=== PATIENT | female | born 1985 | race Caucasian/White ===

== ENCOUNTER 2017-02-02 12:12 | Emergency (ER) | payer BC ==
[2017-02-02 12:46] VITALS: BP 123/86
--- NOTE | 2017-02-02 13:07 | UC ---
Respiratory Complaint HPI - HPI Summary HPI Summary: patient has had some wheezing and SOb on exertion. - History of Current Complaint Chief Complaint: UCGeneralIllness Stated Complaint: COUGH Time Seen by Provider: 02/02/17 12:58 Hx Obtained From: Patient Hx Last Menstrual Period: 01/19/17 ?: No Onset/Duration: Sudden Onset, Lasting Weeks Timing: Constant Severity Initially: Mild Severity Currently: Moderate Character: Cough: Nonproductive Aggravating Factors: Exertion, Deep Breaths, Recumbent Position Alleviating Factors: Nothing Associated Signs And Symptoms: Positive: Wheezing, URI - Allergies/Home Medications Allergies/Adverse Reactions: Allergies Allergy/AdvReac Type Severity Reaction Status Date / Time Adhesive Tape Allergy Intermediate Blisters Verified 02/02/17 12:40 Erythromycin Allergy Hives Verified 02/02/17 12:40 BEE STINGS Allergy Severe Anaphylatic Uncoded 02/02/17 12:40 Shock Home Medications: Home Medications Dextromethorphan-Guaifenesin [Mucinex Dm Maximum Streng 60-1200 mg] 1 tab PO Q6H PRN 02/02/17 [History Confirmed 02/02/17] PMH/Surg Hx/FS Hx/Imm Hx Previously Healthy: Yes - Surgical History Surgical History: Yes Surgery Procedure, Year, and Place: APPY, CHOLECYSTECTOMY, TONSILLECTOMY, FX LEG , Gastric Bypass 08/2014, TUBAL LIGATION 2010, - Family History Known Family History: Positive: Hypertension - Social History Alcohol Use: Rare Substance Use Type: None Smoking Status (MU): Never Smoked Tobacco Review of Systems Constitutional: Negative Skin: Negative Eyes: Negative ENT: Negative Respiratory: Shortness Of Breath, Cough Cardiovascular: Negative Gastrointestinal: Negative Genitourinary: Negative Motor: Negative Neurovascular: Negative Musculoskeletal: Negative Neurological: Negative Psychological: Negative All Other Systems Reviewed And Are Negative: Yes Physical Exam Triage Information Reviewed: Yes Appearance: Well-Nourished, Ill-Appearing, Pain Distress Vital Signs: Initial Vital Signs Temp 98.3 F 02/02/17 12:42 Pulse 75 02/02/17 12:42 Resp 16 02/02/17 12:42 BP 123/86 02/02/17 12:42 Pulse Ox 99 02/02/17 12:42 Vital Signs Reviewed: Yes Eye Exam: Normal ENT: Positive: Hearing grossly normal, Pharynx normal, TMs normal Dental Exam: Normal Neck exam: Normal Neck: Positive: Supple, Nontender, No Lymphadenopathy Respiratory Exam: Normal Respiratory: Positive: Chest non-tender, No respiratory distress, No accessory muscle use, Wheezing, Expiration Cardiovascular Exam: Normal Cardiovascular: Positive: RRR, No Murmur, Pulses Normal Abdominal Exam: Normal Abdomen Description: Positive: Nontender, No Organomegaly, Soft Bowel Sounds: Positive: Present Musculoskeletal Exam: Normal Musculoskeletal: Positive: Strength Intact, ROM Intact, No Edema Neurological Exam: Normal Neurological: Positive: Alert, Muscle Tone Normal Psychological Exam: Normal Skin Exam: Normal UC Diagnostic Evaluation - Laboratory O2 Sat by Pulse Oximetry: 99 Respiratory Course/Dx - Course Course Of Treatment: hx obtained, exam performed ,meds reviewed, treated for wheezing - Differential Dx/Diagnosis Differential Diagnosis/HQI/PQRI: Asthma, Bronchitis, Influenza, Laryngitis, Sinusitis Provider Diagnoses: bronchospasm. URI Discharge - Discharge Plan Condition: Stable Disposition: HOME Prescriptions: predniSONE TAB* [Deltasone TAB*] 40 mg PO DAILY #14 tab Patient Education Materials: Bronchospasm (ED) Additional Instructions: 1. take the prednisone ddaily for the next week. Use the albuterol as needed for cough and Shortness of breath 2. If you develop worsening symptoms follow up.
== END 2017-02-02 13:16 | disposition home or self-care (01) ==
LOC: UCCORT 12:12
DX: J06.9 Acute upper respiratory infection, unspecified (principal); J98.01 Acute bronchospasm; Z88.1 Allergy status to other antibiotic agents; Z91.030 Bee allergy status; Z91.048 Other nonmedicinal substance allergy status; Z90.49 Acquired absence of other specified parts of digestive tract; Z98.84 Bariatric surgery status
CPT/HCPCS: 99212; G0463

== ENCOUNTER 2017-02-11 10:42 | Emergency (ER) | payer BC ==
[2017-02-11 11:08] VITALS: BP 112/73
--- NOTE | 2017-02-11 11:16 | UC ---
Respiratory Complaint HPI - HPI Summary HPI Summary: pt presents with worsening sinus congestion and pressure since 02/02/17. pt was seen on 02/02 and diagnosed with bronchitis, given Albuterol inhaler and prednisone taper. Cough has resolved, but chest "tightness", nasal congestion and sinus pressure has worsened. Denies fever or chills - History of Current Complaint Chief Complaint: UCRespiratory Stated Complaint: RE-CK BRONCHITIS, STILL VERY CONGESTED Time Seen by Provider: 02/11/17 10:58 Hx Obtained From: Patient Hx Last Menstrual Period: 01/19/17 ?: No Onset/Duration: Gradual Onset, Lasting Days - 11+ days Timing: Constant Severity Initially: Mild Severity Currently: Moderate Character: Cough: Nonproductive Aggravating Factors: Allergens, Recumbent Position Associated Signs And Symptoms: Positive: Nasal Congestion, Sinus Discomfort Related History: Seasonal Allergies - Allergies/Home Medications Allergies/Adverse Reactions: Allergies Allergy/AdvReac Type Severity Reaction Status Date / Time Adhesive Tape Allergy Intermediate Blisters Verified 02/11/17 11:00 Erythromycin Allergy Hives Verified 02/11/17 11:00 BEE STINGS Allergy Severe Anaphylatic Uncoded 02/11/17 11:00 Shock PMH/Surg Hx/FS Hx/Imm Hx Previously Healthy: Yes - Surgical History Surgical History: Yes Surgery Procedure, Year, and Place: APPY, CHOLECYSTECTOMY, TONSILLECTOMY, FX LEG , Gastric Bypass 08/2014, TUBAL LIGATION 2010, - Family History Known Family History: Positive: Hypertension - Social History Alcohol Use: Rare Substance Use Type: None Smoking Status (MU): Never Smoked Tobacco Review of Systems Constitutional: Negative Skin: Negative Eyes: Negative ENT: Sinus Congestion, Sinus Pain/Tenderness Respiratory: Other - chest congestion Cardiovascular: Negative Gastrointestinal: Negative Genitourinary: Negative Motor: Negative Neurovascular: Negative Musculoskeletal: Negative Neurological: Negative Psychological: Negative All Other Systems Reviewed And Are Negative: Yes Physical Exam Triage Information Reviewed: Yes Appearance: Ill-Appearing Vital Signs: Initial Vital Signs Temp 98.3 F 02/11/17 11:01 Pulse 94 02/11/17 11:01 Resp 28 02/11/17 11:01 BP 112/73 02/11/17 11:01 Pulse Ox 98 02/11/17 11:01 Vital Signs Reviewed: Yes Eye Exam: Normal ENT Exam: Other ENT: Positive: Nasal congestion, TM bulging - bilateral, Other: - maxillary sinus pressure, tenderness Neck exam: Normal Respiratory: Positive: Decreased breath sounds - bilateral bases Cardiovascular Exam: Normal Musculoskeletal Exam: Normal Neurological Exam: Normal Psychological Exam: Normal Skin Exam: Normal UC Diagnostic Evaluation - Laboratory O2 Sat by Pulse Oximetry: 98 Respiratory Course/Dx - Differential Dx/Diagnosis Differential Diagnosis/HQI/PQRI: Bronchitis, Sinusitis Provider Diagnoses: sinusitis Discharge - Discharge Plan Condition: Stable Disposition: HOME Prescriptions: Amoxicillin (*) [Amoxicillin 875 MG (*)] 875 mg PO Q12H #14 tab Pseudoephedrine-Guaifenesin [Mucinex D 60-600 mg] 1 tab PO DAILY #7 tab Patient Education Materials: Sinusitis (ED) Referrals: Jaylyn Bustillo MD [Primary Care Provider] - If Needed
== END 2017-02-11 11:28 | disposition home or self-care (01) ==
LOC: UCCORT 10:42
DX: J32.9 Chronic sinusitis, unspecified (principal)
CPT/HCPCS: 99212; G0463

== ENCOUNTER 2017-09-16 19:03 | Emergency (ER) | payer BC ==
[2017-09-16 19:36] VITALS: BP 122/67
--- NOTE | 2017-09-16 20:53 | UC ---
UC General HPI - HPI Summary HPI Summary: developed fatigue, fever, body aches, and sore throat, cough over the last 24 hours - History of Current Complaint Chief Complaint: UCGeneralIllness Stated Complaint: FEVER (101), COUGH, ILDA. Time Seen by Provider: 09/16/17 19:29 Hx Obtained From: Patient Hx Last Menstrual Period: 09/05/17 Onset/Duration: Sudden Onset, Lasting Days - 1 Timing: Constant Onset Severity: Mild Current Severity: Severe Associated Signs & Symptoms: Positive: Cough, Dizziness, Fever, Headache, Nausea , Wheezing, Weakness - Allergy/Home Medications Allergies/Adverse Reactions: Allergies Allergy/AdvReac Type Severity Reaction Status Date / Time Adhesive Tape Allergy Intermediate Blisters Verified 09/16/17 19:36 Erythromycin Allergy Hives Verified 09/16/17 19:36 NSAIDs AdvReac See Comment Verified 09/16/17 19:38 BEE STINGS Allergy Severe Anaphylatic Uncoded 09/16/17 19:36 Shock Home Medications: Home Medications Acetaminophen [Acetaminophen Extra Stren] 1,000 mg PO Q6H PRN 09/16/17 [History Confirmed 09/16/17] PMH/Surg Hx/FS Hx/Imm Hx Previously Healthy: Yes - Surgical History Surgical History: Yes Surgery Procedure, Year, and Place: APPY, CHOLECYSTECTOMY, TONSILLECTOMY, FX LEG , Gastric Bypass 08/2014, TUBAL LIGATION 2010, - Family History Known Family History: Positive: Hypertension - Social History Alcohol Use: Occasionally Substance Use Type: None Smoking Status (MU): Never Smoked Tobacco Review of Systems Constitutional: Fever, Fatigue Skin: Negative Eyes: Negative ENT: Sore Throat, Ear Ache Respiratory: Cough Cardiovascular: Negative Gastrointestinal: Nausea Genitourinary: Negative Motor: Negative Neurovascular: Negative Musculoskeletal: Arthralgia, Myalgia Neurological: Headache Psychological: Negative All Other Systems Reviewed And Are Negative: Yes Physical Exam Triage Information Reviewed: Yes Appearance: Well-Nourished, Ill-Appearing, Pain Distress Vital Signs: Initial Vital Signs Temp 99.7 F 09/16/17 19:30 Pulse 94 09/16/17 19:30 Resp 18 09/16/17 19:30 BP 122/67 09/16/17 19:30 Pulse Ox 100 09/16/17 19:30 Vital Signs Reviewed: Yes Eye Exam: Normal ENT: Positive: Pharyngeal erythema, Nasal congestion, TM red Dental Exam: Normal Neck exam: Normal Neck: Positive: Supple, Nontender, No Lymphadenopathy Respiratory Exam: Normal Respiratory: Positive: Chest non-tender, Lungs clear, Normal breath sounds Cardiovascular Exam: Normal Cardiovascular: Positive: RRR, No Murmur, Pulses Normal Abdominal Exam: Normal Abdomen Description: Positive: Nontender, No Organomegaly, Soft Bowel Sounds: Positive: Present Musculoskeletal Exam: Normal Musculoskeletal: Positive: Strength Intact, ROM Intact, No Edema Neurological Exam: Normal Neurological: Positive: Alert, Muscle Tone Normal Psychological Exam: Normal Skin Exam: Normal Course/Dx - Course Course Of Treatment: hx obtained, exam performed, meds reviewed, test flu A +, refused tamilfu - Differential Dx - Multi-Symptom Provider Diagnoses: influenza A Discharge - Discharge Plan Condition: Stable Disposition: HOME Patient Education Materials: Influenza (ED) Forms: *Work Release Referrals: No Primary Care Phys,NOPCP [Primary Care Provider] - Additional Instructions: 1. get plenty of rest, increase fluids, continue with tylenol for pain and fever. 2. If you develop any Shortness of breath or breathing difficulty, report to ER.
== END 2017-09-16 21:10 | disposition home or self-care (01) ==
LOC: UCCORT 19:03
DX: J09.X2 Influenza due to identified novel influenza A virus with other respiratory manifestations (principal); Z72.89 Other problems related to lifestyle
CPT/HCPCS: 87502; 99211; G0463